=== PATIENT | male | born 1960 | race Caucasian/White ===

== ENCOUNTER 2021-05-09 09:29 | Outpatient (CLI) | payer OTHER ==
[~2021-05-09] VITALS: Ht 188 cm; Wt 126.6 kg
[~2021-05-09 09:29] MED LIST: ESCI20TA2; HYDR-3729 PO; MULT-963 PO; OMEG1CAP58; SULF1TAB38 PO
[2021-05-09 09:38] VITALS: BP 163/76
[2021-05-09] MEDS ORDERED: ONDANSETRON 4 MG/2 ML (SDV) Z0FRAN IV PRN (09:45)
[2021-05-09] MEDS ORDERED: diphenhydrAMINE 50 MG/ML INJ (BENADRYL) IV PRN (09:45)
[2021-05-09] MEDS ORDERED: EPINEPHrine INJECTION 1 MG/ML AMP IM PRN (09:45)
[2021-05-09] MEDS ORDERED: ACETAMINOPHEN 500 MG TAB (TYLENOL) PO PRN (09:45)
[2021-05-09] MEDS ORDERED: BAMLANIVIMAB 700 MG/ETESEVIMAB 1,400 MG IN NS IV ONE ×3 (09:45)
[2021-05-09 11:08] VITALS: BP 129/70
== END 2021-05-09 11:14 | disposition home or self-care (01) ==
LOC: INFUSION 09:29
PROVIDERS: ATTEND Nurse Practitioner Community Health
DX: U07.1 COVID-19 (principal)